=== PATIENT | female | born 2000 | race American Indian/Alaskan Native ===

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

== ENCOUNTER 2018-02-09 10:38 | Outpatient (CLI) | payer MEDICAID, OTHER ==
[2018-02-09 11:13] VITALS: BP 129/82
[2018-02-09] MEDS ORDERED: LACTATED RINGERS 1,000 ML ONE (11:45)
[2018-02-09 12:27] LABS: Bilirubin,Urine NEG (Negative); Blood,Urine NEG (Negative); Color,Urine Straw (Yellow); Mucus,Urine FEW /HPF; Protein,Urine <15 mg/dL mg/dL (Negative); Urobilinogen,Urine < 2.0 mg/dL (<2.0)
[2018-02-09 12:41] LABS: Amphetamine Screen,Urine PRESUMPTIVE NEGATIVE; Benzodiazepines Screen,Urine PRESUMPTIVE NEGATIVE; Cocaine Screen,Urine PRESUMPTIVE NEGATIVE; Methadone Screen,Urine PRESUMPTIVE NEGATIVE; Opiate Screen,Urine PRESUMPTIVE NEGATIVE
[2018-02-09] MEDS ORDERED: LACTATED RINGERS 1,000 ML IV ONE (12:42)
[2018-02-09 12:55] LABS: Cannabinoid Screen,Urine PRESUMPTIVE POSITIVE
== END 2018-02-09 12:52 | disposition home or self-care (01) ==
LOC: TRG 10:38
PROVIDERS: ATTEND Obstetrics & Gynecology
DX: O47.1 False labor at or after 37 completed weeks of gestation (principal); Z3A.38 38 weeks gestation of pregnancy
CPT/HCPCS: 80307; 81001; J7120